=== PATIENT | female | born 1970 | race Caucasian/White ===

== ENCOUNTER 2017-03-01 20:44 | Emergency (ER) | payer OTHER ==
[~2017-03-01] VITALS: Ht 175.3 cm; Wt 86.5 kg
[~2017-03-01 20:44] MED LIST: AMLO2.5T78 PO; AUG875 PO; GABA300C16 PO; IBUP800T25 PO; PRED20TA PO
[2017-03-01 20:54] VITALS: Ht 175.3 cm; Wt 86.5 kg
[2017-03-01] MEDS ORDERED: IBUPROFEN 600 MG TAB PO ONE (22:30)
[2017-03-01 22:57] LABS: ADD SCAN DIFF NO
[2017-03-01 23:02] LABS: BASOPHILS % 0.5 % (0.0-2.0); EOSINOPHILS # 0.2 10^3/ul (0.0-0.5); EOSINOPHILS % 2.5 % (0.0-7.0); HEMATOCRIT 34.7 % (37.0-47.0); HEMOGLOBIN 10.6 g/dl (12.0-16.0); LYMPHOCYTES # 2.9 10^3/ul (0.8-2.9); MEAN CORPUSCULAR HEMOGLOBIN 24.3 pg (29.0-33.0); MEAN CORPUSCULAR HGB CONC 30.5 g/dl (32.0-37.0); MEAN CORPUSCULAR VOLUME 79.6 fl (82.0-101.0); MEAN PLATELET VOLUME 10.1 fl (7.4-10.4); MONOCYTE # 0.5 10^3/ul (0.3-0.9); MONOCYTES % 6.1 % (0.0-11.0); NEUTROPHIL # 4.4 10^3/ul (1.6-7.5); NEUTROPHILS % 54.6 % (39.0-77.0); PLATELET COUNT 370 10^3/UL (140-415); RED BLOOD COUNT 4.36 10^6/ul (4.20-5.40); RED CELL DISTRIBUTION WIDTH 15.3 % (11.5-14.5)
[2017-03-01 23:06] LABS: ADD UMIC YES; URINE BILIRUBIN (Dip) NEGATIVE (NEGATIVE); URINE BLOOD (Dip) 2+ (NEGATIVE); URINE COLOR LT. YELLOW (YELLOW); URINE GLUCOSE (Dip) NEGATIVE (NEGATIVE); URINE KETONES (Dip) NEGATIVE (NEGATIVE); URINE LEUKOCYTE ESTERASE (Dip) NEGATIVE (NEGATIVE); URINE NITRITE (Dip) NEGATIVE (NEGATIVE); URINE TOTAL PROTEIN (Dip) NEGATIVE (NEGATIVE); URINE UROBILINOGEN (Dip) 0.2 E.U./dL (0.1-1.0)
[2017-03-01 23:11] LABS: ALBUMIN 4.5 g/dl (3.3-4.9)
[2017-03-01 23:13] LABS: SQUAMOUS EPITHELIAL CELL,UR MODERATE
[2017-03-01 23:14] LABS: ALBUMIN/GLOBULIN RATIO 1.28; BILIRUBIN,INDIRECT 0.1 mg/dl (0-1.1); BILIRUBIN,TOTAL 0.1 mg/dl (0.2-1.3); CREATININE 0.57 mg/dl (0.44-1.00)
[2017-03-01 23:17] LABS: BACTERIA,URINE FEW
--- NOTE | 2017-03-02 00:02 | ERD ---
ER Documentation Chief Complaint Date/Time DATE: 03/02/17 TIME: 00:01 Chief Complaint LUQ pain for 3 days, denies N/V HPI This is a 46-year-old female presents to the ER with left upper quadrant pain for the last week. Patient states that she feels as if there is something in her left upper quadrant that causes her pain. She states that she feels bloated after she eats. She feels as if it stuck in the left upper quadrant. Patient does not describe pain. She denies any nausea vomiting or diarrhea she does not have any fevers or chills. She denies any urinary frequency or dysuria. ROS 12 point review of systems was done, all negative except per HPI. Medications Home Meds Active Scripts Tramadol HCl (Tramadol HCl) 50 Mg Tablet, 50 MG PO Q4 Y for PAIN, #20 TAB Prov:KASSI RAMIREZ 03/02/17 Ibuprofen* (Motrin*) 600 Mg Tab, 600 MG PO Q6, #30 TAB Prov:KASSI RAMIREZ 03/02/17 Prednisone* (Prednisone*) 20 Mg Tab, 40 MG PO DAILY for 4 Days, TAB Prov:INDRA BOONE S. 12/28/15 Ibuprofen* (Motrin*) 800 Mg Tab, 800 MG PO Q8, #30 TAB Prov:INDRA BOONE S. 12/28/15 Amoxicillin-Clavulanate K* (Augmentin*) 875 Mg Tab, 875 MG PO BID for 7 Days, TAB Prov:INDRA BOONE S. 12/28/15 Reported Medications Gabapentin* (Gabapentin*) 300 Mg Capsule, 300 MG PO DAILY 12/28/15 Amlodipine Besylate* (Amlodipine Besylate*) 2.5 Mg Tablet, 2.5 MG PO DAILY 12/28/15 Allergies Allergies: Coded Allergies: No Known Allergy (Unverified , 03/01/17) PMhx/Soc Medical and Surgical Hx: pt denies Medical Hx, pt denies Surgical Hx Hx Alcohol Use: No Hx Substance Use: No Hx Tobacco Use: No Smoking Status: Never smoker Physical Exam Vitals Vital Signs Date Time Temp Pulse Resp B/P Pulse Ox O2 Delivery O2 Flow Rate FiO2 03/01/17 20:54 98.7 85 16 185/107 100 Physical Exam GENERAL: The patient is well developed and appropriate for usual state of health , in no apparent distress. HEENT: Atraumatic. CHEST: Clear to auscultation bilaterally. There are no rales, wheezes or rhonchi. HEART: Regular rate and rhythm. No murmurs, clicks, rubs or gallops. ABDOMEN: Soft, nontender and nondistended. Good bowel sounds. No rebound or guarding. No gross peritonitis. No gross organomegaly or masses. No Schwartz sign or McBurney point tenderness. Her to palpation in the left upper quadrant. BACK: No midline or flank tenderness. NEURO: Alert and oriented. SKIN: The skin is warm and dry. Result Diagram: 03/01/17224203/01/172242 Results 24 hrs Laboratory Tests Test 03/01/17 22:42 03/01/17 22:43 Urine Color LT. YELLOW Urine Clarity CLEAR Urine pH 5.5 Urine Specific [place] >=1.030 Urine Ketones NEGATIVE Urine Nitrite NEGATIVE Urine Bilirubin NEGATIVE Urine Urobilinogen 0.2 E.U./dL Urine Leukocyte Esterase NEGATIVE Urine Microscopic RBC 5-10/HPF Urine Microscopic WBC 0-2/HPF Urine Squamous Epithelial Cells MODERATE Urine Bacteria FEW Urine Yeast FEW Urine Hemoglobin 2+ Urine Glucose NEGATIVE% Urine Total Protein NEGATIVE White Blood Count 8.010^3/ul Red Blood Count 4.3610^6/ul Hemoglobin 10.6g/dl Hematocrit 34.7% Mean Corpuscular Volume 79.6fl Mean Corpuscular Hemoglobin 24.3pg Mean Corpuscular Hemoglobin Concent 30.5g/dl Red Cell Distribution Width 15.3% Platelet Count 78817^3/UL Mean Platelet Volume 10.1fl Neutrophils % 54.6% Lymphocytes % 36.0% Monocytes % 6.1% Eosinophils % 2.5% Basophils % 0.5% Nucleated Red Blood Cells % 0.0/100WBC Neutrophils # 4.410^3/ul Lymphocytes # 2.910^3/ul Monocytes # 0.510^3/ul Eosinophils # 0.210^3/ul Basophils # 0.010^3/ul Nucleated Red Blood Cells # 0.010^3/ul Sodium Level 141mmol/L Potassium Level 4.0mmol/L Chloride Level 105mmol/L Carbon Dioxide Level 26mmol/L Anion Gap 14 Blood Urea Nitrogen 9mg/dl Creatinine 0.57mg/dl Glucose Level 111mg/dl Calcium Level 9.0mg/dl Total Bilirubin 0.1mg/dl Direct Bilirubin 0.00mg/dl Indirect Bilirubin 0.1mg/dl Aspartate Amino Transf (AST/SGOT) 21IU/L Alanine Aminotransferase (ALT/SGPT) 27IU/L Alkaline Phosphatase 65IU/L Total Protein 8.0g/dl Albumin 4.5g/dl Globulin 3.50g/dl Albumin/Globulin Ratio 1.28 Lipase 227U/L Current Medications Medications (Trade) Dose Ordered Sig/Aldo Route PRN Reason Start Time Stop Time Status Last Admin Dose Admin Ibuprofen (Motrin) 600 mg ONCE ONCE PO 03/01/17 22:30 03/01/17 22:31 DC 03/01/17 22:42 Procedures/MDM Differential Diagnosis: GERD, gastritis, peptic ulcer disease, pancreatitis, cholecystitis, choledocholithiasis, biliary colic, cholangitis, [id number] , ACS/MN, Pnuemonia. At this time etiology of patient's abdominal pain is unknown. There is no evidence of acute abdomen. Patient's physical examination is benign. She is afebrile and well-appearing. Patient will be sent home with Tylenol with ibuprofen. She urgently needs to follow-up with her primary care doctor within 1-2 days return to ER sooner symptoms worsen. My medical stomach and she with patient assessment agrees with plan. Departure Diagnosis: Primary Impression: Abdominal pain Condition: Stable KASSI RAMIREZ Mar 02, 2017 00:02
--- NOTE | 2017-03-02 00:26 | RADRPT ---
PROCEDURE: CT ABDOMEN/PELVIS WITHOUT CONTRAST CLINICAL INDICATION: 46-year-old female with abdominal pain. TECHNIQUE: The study was performed utilizing a [employer] VCT 64-slice CT scanner. Direct axia l sections were obtained through the abdomen and pelvis without the use of intravenous contrast mate rial. Sagittal and coronal reformations were obtained. One or more of the following dose reduction t echniques were utilized: automated exposure control, adjustment of the mA and/or kV according to pat ient's size or use of iterative reconstruction technique. The images were reviewed on a PACS workst [email or web address]. CTD/vol = 17.3 mGy; Total Exam DLP = 1054.9 mGy-cm. COMPARISON: None. FINDINGS: There is trace bibasilar subsegmental atelectasis. There is no evidence for significant pleural eff usion. The liver has a normal size and contour without focal areas of abnormal density. No intrahep atic nor extrahepatic biliary ductal dilatation is seen. The gallbladder appears to be collapsed wit hout evidence for calcified stones or significant wall thickening. The pancreas is without areas of abnormal attenuation. The spleen is identified and has a normal size with multiple calcifications within it presumably from prior granulomatous disease. The adrenal glands are unremarkable. The kidn eys are without abnormal density. No hydroureteronephrosis nor nephroureterolithiasis is evident. Th e urinary bladder contains urine. There is retained stool throughout the colon without gross bowel o bstruction. No periappendiceal inflammatory changes is noted. The uterus is anteflexed. There is minimal pelvic free fluid. The aortoiliac vessels are without aneurysmal dilatation. The osseous structures are intact. IMPRESSION: 1. Retained stool within the colon without evidence for bowel obstruction. 2. Calcifications within the spleen consistent with prior granulomatous disease. 3. No CT evidence for obstructive uropathy or renal calculi. 4. Minimal pelvic free fluid. .Harman Chapman MD, Date Time Electronically viewed and signed by .Harman Chapman MD, MD on 03/02/2017 00:26 .M/
[2017-03-02] MEDS ORDERED: IBUP-1542 PO (00:35)
[2017-03-02] MEDS ORDERED: TRAM50TA2 PO (00:35)
[2017-03-02 00:44] VITALS: BP 139/89; PULSE 75; RESP 18; TEMP 98.4
== END 2017-03-02 00:44 | disposition home or self-care (01) ==
LOC: FTE 20:44
DX: R10.12 Left upper quadrant pain (principal)
CPT/HCPCS: 36415; 74176; 80053; 81001; 83690; 85025; Z7502; Z7610; 81003